=== PATIENT | female | born 1940 | race Two or more races ===

== ENCOUNTER → 2018-03-22 | Outpatient (CLI) | END | disposition home or self-care (01) ==

== ENCOUNTER 2018-07-13 07:05 | Inpatient (IN) | payer OTHER ==
[~2018-07-13] VITALS: Ht 157.5 cm; Wt 63.4 kg
[2018-07-13] VITALS (36 sets, daily range): BP systolic 89–159; BP diastolic 43–82; PULSE 71–95; RESP 13–22; Ht 157.5 cm; Wt 63.4 kg
[~2018-07-13 07:05] MED LIST: DESFLURANE 15 MIN ONE
[2018-07-13] MEDS ORDERED: TRANEXAMIC ACID 1,000 MG in NS 100 ML PRE-OP X1 IVPB ONE (08:30)
[2018-07-13] MEDS ORDERED: LACTATED RINGER'S 1,000 ML IV* SCH (08:30)
[2018-07-13] MEDS ORDERED: CEFAZOLIN 2 GM/50 ML (PMX) 50 ML IVPB ONE (08:30)
[2018-07-13] MEDS ORDERED: PROPOFOL 20 ML ONE (08:47)
[2018-07-13] MEDS ORDERED: GLYCOPYRROLATE 0.4 MG INJ ONE (08:47)
[2018-07-13] MEDS ORDERED: MIDAZOLAM 1 MG/ML 2 ML INJ ONE (08:47)
[2018-07-13] MEDS ORDERED: ROCURONIUM 50 MG INJ ONE (08:47)
[2018-07-13] MEDS ORDERED: NEOSTIGMINE 3 MG/3 ML SYRINGE ONE (08:47)
[2018-07-13] MEDS ORDERED: ONDANSETRON 4 MG INJ ONE (08:47)
[2018-07-13] MEDS ORDERED: CEFAZOLIN 1 GM INJ ONE (08:47)
[2018-07-13] MEDS ORDERED: FENTAnyl 50 MCG/ML VIAL ONE (08:47)
[2018-07-13] MEDS ORDERED: DEXAMETHASONE 4 MG/ML 5 ML INJ ONE (08:49)
[2018-07-13] MEDS ORDERED: ROPIVACAINE 0.5 % 30 ML VIAL ONE (08:49)
[2018-07-13] MEDS ORDERED: POLYMYXIN B 500000 UNIT INJ ONE (09:33)
[2018-07-13] MEDS ORDERED: BACITRACIN 50000 UNITS INJ ONE (09:34)
--- NOTE | 2018-07-13 09:43 | HPN ---
Date/Time of Note Date/Time of Note DATE: 07/13/18 TIME: 09:43 Interval H&P Admission Note Pt. seen H&P reviewed: No system changes CLAUDIA LEYVA MD Jul 13, 2018 09:43
[2018-07-13] MEDS: SOD CHLORIDE 0.9% 1,000 ML IV SCH ×2 (09:55→20:58)
--- NOTE | 2018-07-13 09:55 | PDOCDIS ---
Discharge Instructions DIAGNOSIS Discharge Diagnosis Status post right total knee arthroplasty CONDITION [id number] Patient Condition: [id number] Good HOME CARE INSTRUCTIONS: [id number] Diet Instructions: [id number] Regular ACTIVITY: [id number] Activity Restrictions: [id number] Slowly Increase Activity Rest between Activity Avoid heavy lifting No Sexual Activity Do not Drive Do not operate Machinery Do not operate Power Tool Avoid Heavy Housework Keep Limb Elevated (2-3 pillows underneath the right foot only so that leg remains in full extension while resting.) Weight Bearing (Weight-bear as tolerated using front-wheeled walker.) [id number] Bathing Restrictions: [id number] Shower (Okay to shower with Prineo dressing. Do not peel around this area. Keep dressing on until seen at first postoperative visit.) FOLLOW UP/APPOINTMENTS Follow-up Plan Follow-up at postoperative appointment provided to you at your preoperative exam JESSICA ARTEAGA PA-C Jul 13, 2018 09:55
[2018-07-13] MEDS ORDERED: ASPIRIN 81 MG TAB PO ONE (10:00)
[2018-07-13] MEDS ORDERED: oxyCODONE 5 MG TAB PO PRN ×3 (10:00)
[2018-07-13] MEDS ORDERED: DOCUSATE SODIUM 100 MG CAP PO ONE (10:00)
[2018-07-13] MEDS ORDERED: MAGNESIUM HYDROXIDE 30ML CUP PO PRN (10:00)
[2018-07-13] MEDS ORDERED: NA PHOSPHATE/BIPHOS 133 ML ENEMA PR PRN (10:00)
[2018-07-13] MEDS ORDERED: BETHANECHOL 25 MG TAB PO PRN (10:00)
[2018-07-13] MEDS ORDERED: NALOXONE (0.4 MG/ML) INJ IV PRN ×2 (10:00→10:30)
[2018-07-13] MEDS ORDERED: ROPIVACAINE 0.2% 60 ML, morphine SULFATE (PF) 4 MG, CLONIDINE 100 MCG, KETOROLAC 30 MG,... INJ SCH ×7 (10:00)
[2018-07-13] MEDS ORDERED: BISACODYL 10 MG SUPP PR PRN (10:00)
[2018-07-13] MEDS ORDERED: SENNA/DOCUSATE NA (8.6MG/50MG) TAB PO PRN (10:00)
[2018-07-13] MEDS ORDERED: NACL 0.9% 3 ML SYG IV SCH (10:00)
[2018-07-13] MEDS ORDERED: TRANEXAMIC ACID 1,000 MG in NS 100 ML INTRA-OP X1 IVPB ONE (10:00)
[2018-07-13] MEDS ORDERED: DIPHENHYDRAMINE 50 MG INJ IV PRN ×3 (10:00→10:30)
--- NOTE | 2018-07-13 10:14 | PREAC ---
Date/Time of Note Date/Time of Note DATE: 07/13/18 TIME: 10:12 Anesthesia Eval and Record Evaluation Time Pre-Procedure Interview DATE: 07/13/18 TIME: 10:12 Age 78 Sex female NPO: 8 hrs Preoperative diagnosis RIGHT KNEE PRIMARY OA Planned procedure RIGHT TKA Past Medical History Past Medical History: Includes Cardio: Dyslipidemia Surgery & Anesthesia Issues No known issue (SASHA) Meds Anticoagulation: No Beta Riley within 24 hr: No Reason Beta Riley not given: Pt. not on B-Riley No Active Prescriptions or Reported Meds Current Medications Lactated Ringer's 1,000 ml @ 125 mls/hr Q8H IV* ; Start 07/13/18 at 08:30; Stop 07/13/18 at 16:29 Tranexamic Acid 1000 mg/Sodium Chloride 110 ml @ 220 mls/hr INTRA-OP ONCE IVPB ; Start 07/13/18 at 10:00; Stop 07/13/18 at 10:29 Sodium Chloride 1,000 ml @ 80 mls/hr [id number] IV ; Start 07/13/18 at 09:55; Status UNV IV Flush (NS 3 ml) 3 ml PER PROTOCOL IV ; Start 07/13/18 at 10:00; Status UNV Oxycodone HCl (Roxicodone) 15 mg Q4H PRN PO PAIN; Start 07/13/18 at 10:00; Status UNV Oxycodone HCl (Roxicodone) 10 mg Q4H PRN PO PAIN; Start 07/13/18 at 10:00; Status UNV Oxycodone HCl (Roxicodone) 5 mg Q4H PRN PO PAIN; Start 07/13/18 at 10:00; Status UNV Ondansetron HCl (Zofran Inj) 4 mg Q4H PRN IV NAUSEA AND/OR VOMITING; Start 07/14/18 at 10:00; Status UNV Cefazolin Sodium/ Dextrose 50 ml @ 100 mls/hr Q8H IVPB ; Start 07/13/18 at 10:00; Stop 07/14/18 at 02:29; Status UNV Celecoxib (Celebrex) 100 mg BID PO ; Start 07/14/18 at 09:00; Status UNV Gabapentin (Neurontin) 100 mg TID PO ; Start 07/13/18 at 13:00; Status UNV Pantoprazole (Protonix Tab) 40 mg DAILY@06 PO ; Start 07/15/18 at 06:00; Status UNV Docusate Sodium (Colace) 200 mg NOW ONCE PO ; Start 07/13/18 at 10:00; Stop 07/13/18 at 10:01; Status UNV Docusate Sodium (Colace) 200 mg BID PO ; Start 07/14/18 at 09:00; Stop 07/17/18 at 08:59; Status UNV Simethicone (Mylicon) 80 mg TID PRN PO DISTENSION/GAS/BLOATING; Start 07/13/18 at 10:00; Status UNV Senna/Docusate Sodium (Senokot-S) 2 tab BID PRN PO CONSTIPATION; Start 07/13/18 at 10:00; Status UNV Magnesium Hydroxide (Milk Of Mag) 30 ml HS PRN PO CONSTIPATION; Start 07/13/18 at 10:00; Status UNV Bisacodyl (Dulcolax Supp) 10 mg DAILY PRN CO CONSTIPATION; Start 07/13/18 at 10:00; Status UNV Sodium Biphosphate/ Sodium Phosphate (Fleet Enema) 133 ml DAILY PRN CO CONSTIPATION; Start 07/13/18 at 10:00; Status UNV Diphenhydramine HCl (Benadryl) 25 mg Q4H PRN IV ITCHING; Start 07/13/18 at 10:00; Status UNV Naloxone HCl (Narcan) 0.2 mg Q2M PRN IV DECREASED REPIRATORY RATE; Start 07/13/18 at 10:00; Status UNV Bethanechol Chloride (Urecholine) 25 mg URINARY CATH D/C PRN PO UNABLE TO VOID; Start 07/13/18 at 10:00; Status UNV Aspirin (Aspirin) 81 mg NOW ONCE PO ; Start 07/13/18 at 10:00; Stop 07/13/18 at 10:01; Status UNV Aspirin (Halfprin) 81 mg BID PO ; Start 07/14/18 at 09:00; Status UNV Meds reviewed: Yes Allergies Coded Allergies: No Known Allergy (Unverified , 07/13/18) Allergies Reviewed: Yes Labs/Studies Labs Reviewed: Reviewed by anesthesiologist test: N/A Studies: ECG (SR @ 68 BPM), CXR (NAPD) Pre-procedure Exam Last vitals Vital Signs Date Temp Pulse Resp B/P (MAP) Pulse Ox O2 O2 Flow FiO2 Time Delivery Rate 07/13/18 97.3 71 18 159/72 96 Room Air 07:55 (101) Airway: Adequate mouth opening, Adequate thyromental dist Mallampati: Mallampati II Teeth: Abnormal (PT HAS 2 TEETH, CLAIMS THEY'RTE NOT LOOSE) Lung: Normal Heart: Normal ASA Physical Status ASA physical status: 2 Emergency: None Planned Anesthetic General/MAC: ETT Neuraxial: Spinal Nerve block: Femoral (right) Planned Pain Management Single shot nerve block, Parenteral pain med, Local by surgeon Pre-operative Attestations Prior to commencing anesthesia and surgery, the patient was re-evaluated, there was verification of: *The patient's identity *The results of appropriate recent lab work and preoperative vital signs *The above evaluation not changing prior to induction *Anesthetic plan, risk benefits, alternative and complications discussed with patient/family; questions answered; patient/family understands, accepts and wishes to proceed. Frank Bobo M.D. Jul 13, 2018 10:14
[2018-07-13] MEDS ORDERED: morphine SULFATE/PF (10 MG/10 ML) INJ ONE (10:28)
[2018-07-13] MEDS ORDERED: hydrALAzine 20 MG INJ IV PRN (10:30)
[2018-07-13] MEDS ORDERED: KETOROLAC 30 MG INJ IV PRN (10:30)
[2018-07-13] MEDS ORDERED: OXYCODONE/ACETAMINOPHEN (5/325) TAB PO PRN ×2 (10:30)
[2018-07-13] MEDS ORDERED: EPHEDrine SULFATE 50 MG/5 ML SYG IV PRN (10:30)
[2018-07-13] MEDS ORDERED: HYDROmorphONE 0.5 MG/0.5 ML SYG IV PRN ×2 (10:30)
[2018-07-13] MEDS ORDERED: MIDAZOLAM 1 MG/ML 2 ML INJ IV PRN (10:30)
[2018-07-13] MEDS ORDERED: ZOLPIDEM 5 MG TAB PO PRN (10:30)
[2018-07-13] MEDS ORDERED: MEPERIDINE 25 MG INJ IV PRN (10:30)
[2018-07-13] MEDS ORDERED: ALBUTEROL 0.083% (NEB) 2.5 MG/3 ML AMP HHN PRN (10:30)
[2018-07-13] MEDS ORDERED: ONDANSETRON 4 MG INJ IV PRN ×2 (10:30)
[2018-07-13] MEDS ORDERED: TRIMETHOBENZAMIDE 100 MG/ML VIAL IM PRN ×2 (10:30)
[2018-07-13] MEDS ORDERED: HYDROmorphONE 1 MG/5 ML IV SYRINGE IV PRN ×3 (10:30)
[2018-07-13] MEDS ORDERED: IPRATROPIUM (NEB) 0.5 MG/2.5 ML AMP HHN PRN (10:30)
[2018-07-13] MEDS ORDERED: FENTAnyl 50 MCG/ML VIAL IV PRN ×3 (10:30)
[2018-07-13] MEDS ORDERED: LABETALOL HCL 20MG INJ IV PRN (10:30)
[2018-07-13] MEDS ORDERED: NALBUPHINE HCL (10 MG/1 ML) INJ IV PRN (10:30)
[2018-07-13] MEDS ORDERED: SUGAMMADEX SODIUM 200 MG/2 ML VIAL IV ONE (12:30)
--- NOTE | 2018-07-13 12:44 | SIPON ---
Date/Time of Note Date/Time of Note DATE: 07/13/18 TIME: 12:43 Operative Report Preoperative Diagnosis Right Knee Osteoarthritis Postoperative Diagnosis Same Operation/Procedure Performed Right Total Knee Arthroplasty Surgeon Iman Leyva MD assistant professor of theater [address] Second assist: JESSICA ARTEAGA PA-C Anesthesia: spinal Estimated blood loss: 250 - 300 ml's Transfusion Required none Specimen bone Grafts/Implants none Complications none IMAN LEYVA MD Jul 13, 2018 12:43
--- NOTE | 2018-07-13 12:45 | OPR ---
Date/Time of Note Date/Time of Note DATE: 07/13/18 TIME: 12:44 Operative Report Free Text/Dictation DATE OF OPERATION: July 13, 2018 SURGEON: Claudia Leyva MD LUMBER SORTER MACHINE: Dwayne TIERNEY LUMBER SORTER MACHINE: Ziyad Moctezuma PREOPERATIVE DIAGNOSIS: Right knee osteoarthritis. POSTOPERATIVE DIAGNOSIS: Right knee osteoarthritis. PROCEDURES PERFORMED: Right total knee arthroplasty, CPT code 08343. ANESTHESIOLOGIST: Dr. Bobo ANESTHESIA: Spinal. ESTIMATED BLOOD LOSS: 300 mL. COMPLICATIONS: None. SPECIMENS: Resected bone. DISPOSITION: PACU in stable condition. TOURNIQUET TIME: 47 minutes at 250 mmHg. IMPLANT USED: Marquez [employer] Nephew size 3 Aggie tibial baseplate, size 5 Narrow posterior stabilized Oxinium femur, size 10 high flexion polyethylene, size 35 mm patella. INDICATION FOR PROCEDURE: This is an 78-year-old female with end-stage osteoarthritis of the right knee who had failed nonoperative management. Risks, benefits, alternatives of surgical intervention were discussed with the patient and informed consent was obtained. The risks of surgery include but are not limited to infection, deep venous thrombosis, pulmonary embolism, damage to nerves and blood vessels, numbness around incision site, stiffness of knee, need for total knee manipulation under anesthesia, need for blood transfuion, heart attack, stroke, risks associated with anesthesia, implant loosening, wear of prosthesis, need for revision surgery, and . DESCRIPTION OF PROCEDURE: The patient was met in the preoperative suite. The correct operative site was confirmed and marked. The patient was then brought into operating room. After induction of anesthesia, the patient was placed in the supine position on the operating room table. A tourniquet was applied to right upper thigh. The right lower extremity was prepped and draped in the usual sterile fashion. Before starting, a timeout was taken to identify the correct operative site and confirm preoperative antibiotics consisting of 1 g of IV Ancef, along with 1 g of tranexamic acid were administered. At this point, the right leg was elevated and exsanguinated with an Esmarch and tourniquet was then insufflated for the above noted time. A midline incision was made and median parapatellar arthrotomy was then completed. The lateral patellar retinacular ligaments were released. A sleeve of tissue was released from the medial proximal tibia. The cruciate ligaments and the menisci were then excised. At this point, the custom distal femur cutting block was then pinned and 9.5 mm was resected from the distal femur. The 4-in-1 cutting block, size 5 was then placed. An clifton wing was used to confirm that notching of the anterior cortex of the femur would not occur. The anterior and posterior condylar cuts were completed followed by the anterior and posterior chamfer cuts. The osteophytes were then removed with a rongeur. At this point, the tibia was subluxed anteriorly. Appropriate retractors were placed. The custom tibial cutting block was then pinned. The drop was used to ensure the correct alignment. Approximately 11 mm was resected off the lateral tibial plateau and 5 mm off the medial tibial plateau. Osteophytes were then removed. At this point, the flexion extension gaps were checked with a 9 mm gap tool checker and noted to be loose in both. Next, trial 5 narrow femur was then pinned and the box cut was then completed. The tibia was then subluxed anteriorly and measured to size 3. The tibial tray was then pinned and a keel was then punched. The trial components were placed with a 9 mm polyethylene and noted to have full extension and greater than 120 degrees of flexion. The patella was then subluxed laterally and sized to 21 mm. Approximately, 7 mm was resected. The patellar was sized to 35 mm. The button was placed and noted to have excellent patellar tracking. The trial components were removed. All bony surfaces were pulse lavaged and dried. The appropriate size components were then cemented and the knee was held in extension with a 10 mm trial polyethylene until the cement cured. Once the cement had cured, the trial polyethylene was removed and the appropriate size polyethylene was then placed. The tranexamic acid was redosed. The cocktail was then injected. The extensor mechanism was closed using #1 Stratafix and the subcutaneous tissue with 2-0 Vicryl and the skin with 4-0 Monocryl. Steri-Strips were applied along with a sterile dressing. There were no complications. The patient was transferred to PACU in stable condition. POSTOPERATIVE CARE: The patient will be weightbearing as tolerated. The patient will work with physical therapy, and will receive two additional doses of IV antibiotics along with aspirin 81 mg p.o. b.i.d. for 6 weeks. Upon discharge, patient will follow up in my office within 2 weeks postoperatively. CLAUDIA LEYVA MD Jul 13, 2018 12:45
--- NOTE | 2018-07-13 12:54 | PAC ---
Date/Time of Note Date/Time of Note DATE: 07/13/18 TIME: 12:54 Post-Anesthesia Notes Post-Anesthesia Note Last documented vital signs Vital Signs Date Temp Pulse Resp B/P (MAP) Pulse Ox O2 O2 Flow FiO2 Time Delivery Rate 07/13/18 97.3 71 18 159/72 96 Room Air 12:54 (101) Activity: WNL Respiratory function: WNL Cardiovascular function: WNL Mental status: Baseline Pain reasonably controlled: Yes Hydration appropriate: Yes Nausea/Vomiting absent: Yes Frank Bobo M.D. Jul 13, 2018 12:54
--- NOTE | 2018-07-13 14:07 | CONS ---
Date/Time of Note Date/Time of Note DATE: 07/13/18 TIME: 13:59 Consultation Date/Type/Reason Admit Date/Time Jul 13, 2018 at 07:05 Type of Consult Medicine Hx of Present Illness 78 yo female with OA who is seen in PACU following TKA - No acute medical issues - Pain control - Diet as tolerated - DVT prophylaxis per orthopedics Past Medical History Medications Current Medications Lactated Ringer's 1,000 ml @ 125 mls/hr Q8H IV* ; Start 07/13/18 at 08:30; Stop 07/13/18 at 16:29 Sodium Chloride 1,000 ml @ 80 mls/hr [id number] IV ; Start 07/13/18 at 09:55 IV Flush (NS 3 ml) 3 ml PER PROTOCOL IV ; Start 07/13/18 at 10:00 Oxycodone HCl (Roxicodone) 15 mg Q4H PRN PO PAIN; Start 07/13/18 at 10:00 Oxycodone HCl (Roxicodone) 10 mg Q4H PRN PO PAIN; Start 07/13/18 at 10:00 Oxycodone HCl (Roxicodone) 5 mg Q4H PRN PO PAIN; Start 07/13/18 at 10:00 Ondansetron HCl (Zofran Inj) 4 mg Q4H PRN IV NAUSEA AND/OR VOMITING; Start 07/14/18 at 10:00 Cefazolin Sodium/ Dextrose 50 ml @ 100 mls/hr Q8H IVPB ; Start 07/13/18 at 19:00; Stop 07/14/18 at 11:29 Celecoxib (Celebrex) 100 mg BID PO ; Start 07/14/18 at 09:00 Gabapentin (Neurontin) 100 mg TID PO ; Start 07/13/18 at 15:00 Pantoprazole (Protonix Tab) 40 mg DAILY@06 PO ; Start 07/15/18 at 06:00 Docusate Sodium (Colace) 200 mg BID PO ; Start 07/14/18 at 09:00; Stop 07/17/18 at 08:59 Simethicone (Mylicon) 80 mg TID PRN PO DISTENSION/GAS/BLOATING; Start 07/13/18 at 10:00 Senna/Docusate Sodium (Senokot-S) 2 tab BID PRN PO CONSTIPATION; Start 07/13/18 at 10:00 Magnesium Hydroxide (Milk Of Mag) 30 ml HS PRN PO CONSTIPATION; Start 07/13/18 at 10:00 Bisacodyl (Dulcolax Supp) 10 mg DAILY PRN CA CONSTIPATION; Start 07/13/18 at 10:00 Sodium Biphosphate/ Sodium Phosphate (Fleet Enema) 133 ml DAILY PRN CA CONSTIPATION; Start 07/13/18 at 10:00 Diphenhydramine HCl (Benadryl) 25 mg Q4H PRN IV ITCHING; Start 07/13/18 at 10:00 Naloxone HCl (Narcan) 0.2 mg Q2M PRN IV DECREASED REPIRATORY RATE; Start 07/13/18 at 10:00 Bethanechol Chloride (Urecholine) 25 mg URINARY CATH D/C PRN PO UNABLE TO VOID; Start 07/13/18 at 10:00 Aspirin (Halfprin) 81 mg BID PO ; Start 07/14/18 at 09:00 Hydromorphone HCl (Dilaudid) 0.2 mg PACU PRN IV MILD PAIN LEVEL 1-3; Start 07/13/18 at 10:30; Stop 07/13/18 at 16:00 Hydromorphone HCl (Dilaudid) 0.4 mg PACU PRN IV MODERATE PAIN LEVEL 4-6; Start 07/13/18 at 10:30; Stop 07/13/18 at 16:00 Hydromorphone HCl (Dilaudid) 0.6 mg PACU PRN IV SEVERE PAIN LEVEL 7-10; Start 07/13/18 at 10:30; Stop 07/13/18 at 16:00 Fentanyl (Sublimaze) 25 mcg PACU ORDER PRN IV MILD PAIN LEVEL 1-3; Start 07/13/18 at 10:30; Stop 07/13/18 at 16:00 Fentanyl (Sublimaze) 50 mcg PACU ORDER PRN IV MODERATE PAIN LEVEL 4-6; Start 07/13/18 at 10:30; Stop 07/13/18 at 16:00 Fentanyl (Sublimaze) 75 mcg PACU ORDER PRN IV SEVERE PAIN LEVEL 7-10; Start 07/13/18 at 10:30; Stop 07/13/18 at 16:00 Oxycodone/ Acetaminophen (Percocet (5/ 325)) 1 tab PACU ORDER PRN PO PAIN LEVEL 1-5; Start 07/13/18 at 10:30; Stop 07/13/18 at 16:00 Oxycodone/ Acetaminophen (Percocet (5/ 325)) 2 tab PACU ORDER PRN PO PAIN LEVEL 6-10; Start 07/13/18 at 10:30; Stop 07/13/18 at 16:00 Ondansetron HCl (Zofran Inj) 4 mg PACU ORDER PRN IV NAUSEA AND/OR VOMITING; Start 07/13/18 at 10:30; Stop 07/13/18 at 16:00 Trimethobenzamide HCl (Tigan) 200 mg PACU ORDER PRN IM NAUSEA AND/OR VOMITING; Start 07/13/18 at 10:30; Stop 07/13/18 at 16:00 Labetalol HCl (Labetalol) 5 mg PACU ORDER PRN IV ELEVATED BLOOD PRESSURE; Start 07/13/18 at 10:30; Stop 07/13/18 at 16:00 Hydralazine HCl (Apresoline) 5 mg PACU ORDER PRN IV ELEVATED BLOOD PRESSURE; Start 07/13/18 at 10:30; Stop 07/13/18 at 16:00 Ephedrine Sulfate 5 mg PACU ORDER PRN IV BLOOD PRESSURE SUPPORT; Start 07/13/18 at 10:30; Stop 07/13/18 at 16:00 Albuterol (Proventil 0.083% (Neb)) 2.5 mg PACU ORDER PRN HHN WHEEZING; Start 07/13/18 at 10:30; Stop 07/13/18 at 16:00 Ipratropium [place] (Atrovent 0.02% (Neb)) 0.5 mg PACU ORDER PRN HHN WHEEZING; Start 07/13/18 at 10:30; Stop 07/13/18 at 16:00 Meperidine HCl (Demerol) 25 mg PACU ORDER PRN IV POST OPERATIVE SHIVERING; Start 07/13/18 at 10:30; Stop 07/13/18 at 16:00 Diphenhydramine HCl (Benadryl) 25 mg PACU ORDER PRN IV PRURITUS; Start 07/13/18 at 10:30; Stop 07/13/18 at 16:00 Midazolam HCl (Versed) 0.5 mg PACU ORDER PRN IV ANXIETY; Start 07/13/18 at 10:30; Stop 07/13/18 at 16:00 Hydromorphone HCl (Dilaudid) 0.2 mg Q2H PRN IV PAIN LEVEL 1-5; Start 07/13/18 at 10:30 Hydromorphone HCl (Dilaudid) 0.4 mg Q2H PRN IV PAIN LEVEL 6-10; Start 07/13/18 at 10:30 Ketorolac Tromethamine (Toradol) 30 mg Q6H PRN IV PAIN LEVEL 6-10; Start 07/13/18 at 10:30; Stop 07/16/18 at 10:29 Diphenhydramine HCl (Benadryl) 25 mg Q4H PRN IV PRURITUS; Start 07/13/18 at 10:30 Nalbuphine HCl (Nubain) 10 mg Q4H PRN IV PRURITUS; Start 07/13/18 at 10:30 Ondansetron HCl (Zofran Inj) 4 mg Q6H PRN IV NAUSEA AND/OR VOMITING; Start 07/13/18 at 10:30 Trimethobenzamide HCl (Tigan) 200 mg Q6H PRN IM NAUSEA AND/OR VOMITING; Start 07/13/18 at 10:30 Zolpidem Tartrate (Ambien) 5 mg HS MAY REPEAT X 1 PRN PO INSOMNIA; Start 07/13/18 at 10:30 Naloxone HCl (Narcan) 0.2 mg Q2M PRN IV DECREASED REPIRATORY RATE; Start 07/13/18 at 10:30 Miscellaneous Information (* Miscellaneous Pharmacy Order) DURAMORPH: 0.1 MG SPI... GIVEN NEURAXIAL XX ; Start 07/13/18 at 10:30 Allergies: Coded Allergies: No Known Allergy (Unverified , 07/13/18) Social History Smoking Status: Never smoker Exam/Review of Systems Vital Signs Vitals Vital Signs Date Temp Pulse Resp B/P (MAP) Pulse Ox O2 O2 Flow FiO2 Time Delivery Rate 07/13/18 86 22 113/64 98 Nasal 2.0 13:35 (80) Cannula 07/13/18 98.1 12:43 Medications Medications Current Medications Lactated Ringer's 1,000 ml @ 125 mls/hr Q8H IV* ; Start 07/13/18 at 08:30; Stop 07/13/18 at 16:29 Sodium Chloride 1,000 ml @ 80 mls/hr [id number] IV ; Start 07/13/18 at 09:55 IV Flush (NS 3 ml) 3 ml PER PROTOCOL IV ; Start 07/13/18 at 10:00 Oxycodone HCl (Roxicodone) 15 mg Q4H PRN PO PAIN; Start 07/13/18 at 10:00 Oxycodone HCl (Roxicodone) 10 mg Q4H PRN PO PAIN; Start 07/13/18 at 10:00 Oxycodone HCl (Roxicodone) 5 mg Q4H PRN PO PAIN; Start 07/13/18 at 10:00 Ondansetron HCl (Zofran Inj) 4 mg Q4H PRN IV NAUSEA AND/OR VOMITING; Start 07/14/18 at 10:00 Cefazolin Sodium/ Dextrose 50 ml @ 100 mls/hr Q8H IVPB ; Start 07/13/18 at 19:00; Stop 07/14/18 at 11:29 Celecoxib (Celebrex) 100 mg BID PO ; Start 07/14/18 at 09:00 Gabapentin (Neurontin) 100 mg TID PO ; Start 07/13/18 at 15:00 Pantoprazole (Protonix Tab) 40 mg DAILY@06 PO ; Start 07/15/18 at 06:00 Docusate Sodium (Colace) 200 mg BID PO ; Start 07/14/18 at 09:00; Stop 07/17/18 at 08:59 Simethicone (Mylicon) 80 mg TID PRN PO DISTENSION/GAS/BLOATING; Start 07/13/18 at 10:00 Senna/Docusate Sodium (Senokot-S) 2 tab BID PRN PO CONSTIPATION; Start 07/13/18 at 10:00 Magnesium Hydroxide (Milk Of Mag) 30 ml HS PRN PO CONSTIPATION; Start 07/13/18 at 10:00 Bisacodyl (Dulcolax Supp) 10 mg DAILY PRN CA CONSTIPATION; Start 07/13/18 at 10:00 Sodium Biphosphate/ Sodium Phosphate (Fleet Enema) 133 ml DAILY PRN CA CONSTIPATION; Start 07/13/18 at 10:00 Diphenhydramine HCl (Benadryl) 25 mg Q4H PRN IV ITCHING; Start 07/13/18 at 10:00 Naloxone HCl (Narcan) 0.2 mg Q2M PRN IV DECREASED REPIRATORY RATE; Start 07/13/18 at 10:00 Bethanechol Chloride (Urecholine) 25 mg URINARY CATH D/C PRN PO UNABLE TO VOID; Start 07/13/18 at 10:00 Aspirin (Halfprin) 81 mg BID PO ; Start 07/14/18 at 09:00 Hydromorphone HCl (Dilaudid) 0.2 mg PACU PRN IV MILD PAIN LEVEL 1-3; Start 07/13/18 at 10:30; Stop 07/13/18 at 16:00 Hydromorphone HCl (Dilaudid) 0.4 mg PACU PRN IV MODERATE PAIN LEVEL 4-6; Start 07/13/18 at 10:30; Stop 07/13/18 at 16:00 Hydromorphone HCl (Dilaudid) 0.6 mg PACU PRN IV SEVERE PAIN LEVEL 7-10; Start 07/13/18 at 10:30; Stop 07/13/18 at 16:00 Fentanyl (Sublimaze) 25 mcg PACU ORDER PRN IV MILD PAIN LEVEL 1-3; Start 07/13/18 at 10:30; Stop 07/13/18 at 16:00 Fentanyl (Sublimaze) 50 mcg PACU ORDER PRN IV MODERATE PAIN LEVEL 4-6; Start 07/13/18 at 10:30; Stop 07/13/18 at 16:00 Fentanyl (Sublimaze) 75 mcg PACU ORDER PRN IV SEVERE PAIN LEVEL 7-10; Start 07/13/18 at 10:30; Stop 07/13/18 at 16:00 Oxycodone/ Acetaminophen (Percocet (5/ 325)) 1 tab PACU ORDER PRN PO PAIN LEVEL 1-5; Start 07/13/18 at 10:30; Stop 07/13/18 at 16:00 Oxycodone/ Acetaminophen (Percocet (5/ 325)) 2 tab PACU ORDER PRN PO PAIN LEVEL 6-10; Start 07/13/18 at 10:30; Stop 07/13/18 at 16:00 Ondansetron HCl (Zofran Inj) 4 mg PACU ORDER PRN IV NAUSEA AND/OR VOMITING; Start 07/13/18 at 10:30; Stop 07/13/18 at 16:00 Trimethobenzamide HCl (Tigan) 200 mg PACU ORDER PRN IM NAUSEA AND/OR VOMITING; Start 07/13/18 at 10:30; Stop 07/13/18 at 16:00 Labetalol HCl (Labetalol) 5 mg PACU ORDER PRN IV ELEVATED BLOOD PRESSURE; Start 07/13/18 at 10:30; Stop 07/13/18 at 16:00 Hydralazine HCl (Apresoline) 5 mg PACU ORDER PRN IV ELEVATED BLOOD PRESSURE; Start 07/13/18 at 10:30; Stop 07/13/18 at 16:00 Ephedrine Sulfate 5 mg PACU ORDER PRN IV BLOOD PRESSURE SUPPORT; Start 07/13/18 at 10:30; Stop 07/13/18 at 16:00 Albuterol (Proventil 0.083% (Neb)) 2.5 mg PACU ORDER PRN HHN WHEEZING; Start 07/13/18 at 10:30; Stop 07/13/18 at 16:00 Ipratropium [place] (Atrovent 0.02% (Neb)) 0.5 mg PACU ORDER PRN HHN WHEEZING; Start 07/13/18 at 10:30; Stop 07/13/18 at 16:00 Meperidine HCl (Demerol) 25 mg PACU ORDER PRN IV POST OPERATIVE SHIVERING; Start 07/13/18 at 10:30; Stop 07/13/18 at 16:00 Diphenhydramine HCl (Benadryl) 25 mg PACU ORDER PRN IV PRURITUS; Start 07/13/18 at 10:30; Stop 07/13/18 at 16:00 Midazolam HCl (Versed) 0.5 mg PACU ORDER PRN IV ANXIETY; Start 07/13/18 at 10:30; Stop 07/13/18 at 16:00 Hydromorphone HCl (Dilaudid) 0.2 mg Q2H PRN IV PAIN LEVEL 1-5; Start 07/13/18 at 10:30 Hydromorphone HCl (Dilaudid) 0.4 mg Q2H PRN IV PAIN LEVEL 6-10; Start 07/13/18 at 10:30 Ketorolac Tromethamine (Toradol) 30 mg Q6H PRN IV PAIN LEVEL 6-10; Start 07/13/18 at 10:30; Stop 07/16/18 at 10:29 Diphenhydramine HCl (Benadryl) 25 mg Q4H PRN IV PRURITUS; Start 07/13/18 at 10:30 Nalbuphine HCl (Nubain) 10 mg Q4H PRN IV PRURITUS; Start 07/13/18 at 10:30 Ondansetron HCl (Zofran Inj) 4 mg Q6H PRN IV NAUSEA AND/OR VOMITING; Start 07/13/18 at 10:30 Trimethobenzamide HCl (Tigan) 200 mg Q6H PRN IM NAUSEA AND/OR VOMITING; Start 07/13/18 at 10:30 Zolpidem Tartrate (Ambien) 5 mg HS MAY REPEAT X 1 PRN PO INSOMNIA; Start 07/13/18 at 10:30 Naloxone HCl (Narcan) 0.2 mg Q2M PRN IV DECREASED REPIRATORY RATE; Start 07/13/18 at 10:30 Miscellaneous Information (* Miscellaneous Pharmacy Order) DURAMORPH: 0.1 MG SPI... GIVEN NEURAXIAL XX ; Start 07/13/18 at 10:30 MARC SEE MD Jul 13, 2018 14:07
[2018-07-13] MEDS: GABAPENTIN 100 MG CAP PO SCH ×2 (15:38→20:58)
[2018-07-13] MEDS: CEFAZOLIN 2 GM/50 ML (PMX) 50 ML IVPB SCH (19:32)
[2018-07-14 02:00] VITALS: BP 100/56; RESP 18
[2018-07-14] MEDS: CEFAZOLIN 2 GM/50 ML (PMX) 50 ML IVPB SCH ×2 (02:43→11:25)
[2018-07-14 05:30] VITALS: BP 97/53; PULSE 71; RESP 17
[2018-07-14 07:42] VITALS: BP 92/51; PULSE 65; RESP 18
[2018-07-14] MEDS: GABAPENTIN 100 MG CAP PO SCH ×2 (08:16→13:43)
[2018-07-14] MEDS ORDERED: DOCUSATE SODIUM 100 MG CAP PO SCH (09:00)
[2018-07-14] MEDS ORDERED: ASPIRIN (EC) 81 MG TAB PO SCH (09:00)
[2018-07-14] MEDS ORDERED: CELECOXIB 100 MG CAP PO SCH (09:00)
[2018-07-14] MEDS ORDERED: ONDANSETRON 4 MG INJ IV PRN (10:00)
[2018-07-14] MEDS: SOD CHLORIDE 0.9% 1,000 ML IV SCH (10:55)
--- NOTE | 2018-07-14 13:06 | PN ---
Date/Time of Note Date/Time of Note DATE: 07/14/18 TIME: 13:04 Assessment/Plan VTE Prophylaxis VTE Prophylaxis Intervention: ambulation, SCD's, other (Aspirin 81) Lines/Catheters IV Catheter Type (from Nrsg): Peripheral IV Fall in Place (from Nrsg): No Assessment/Plan Assessment/Plan -Pain Meds as needed -ASA for DVT Prophylaxis x 6 weeks outpatient discussed. -Continue monitoring as outpatient on discharge -Follow-up at scheduled postop outpatient appointment or sooner if there is any issue. -Patient Stable -Discharge to SNF per patient request as she is uncomfortable returning home. Subjective 24 Hr Interval Summary 78-year-old female postop day 1 status post right total knee arthroplasty. Mild to moderate pain complaints today. Walking about 3 feet with physical therapy yesterday. Denies any chest pain/tightness, shortness of breath or difficulty breathing. No fever. Pain Control: mild Exam/Review of Systems Vital Signs Vitals Vital Signs Date Temp Pulse Resp B/P (MAP) Pulse Ox O2 O2 Flow FiO2 Time Delivery Rate 07/14/18 Nasal 3.0 08:32 Cannula 07/14/18 98.0 65 18 92/51 (65) 96 07:42 Intake and Output 07/13/18 07/13/18 07/14/18 1515:00 23:00 07:00 IntakeIntake Total 1600 ml 100 ml 610 ml OutputOutput Total 50 ml 600 ml 400 ml BalanceBalance 1550 ml -500 ml 210 ml Exam Free Text/Dictation -No complications with dressing intact. -4/5 Tibialis Anterior, EHL Gastrocnemius/Soleus and Peroneals -Normal Sensation -Palpable DP/PT, Capillary Refill <2 secs -No Distal Edema -Negative Sol Sign/No calf pain -Toes Freely Movable Constitutional: alert, oriented, well developed Results Result Diagram: 07/14/18 0435 07/14/18 0435 JESSICA ARTEAGA PA-C Jul 14, 2018 13:06
[2018-07-14 14:47] VITALS: BP 93/54; PULSE 78; RESP 18
--- NOTE | 2018-07-14 15:54 | DS ---
Date/Time of Note Date/Time of Note DATE: 07/14/18 TIME: 15:51 Discharge Summary Admission/Discharge Info Admit Date/Time Jul 13, 2018 at 07:05 Discharge Date/Time Discharge Diagnosis Status post right total knee arthroplasty Patient Condition: Stable Consults Dr Minna Lakhani Procedures PREOPERATIVE DIAGNOSIS: Right knee osteoarthritis. POSTOPERATIVE DIAGNOSIS: Right knee osteoarthritis. PROCEDURES PERFORMED: Right total knee arthroplasty, CPT code 53968. Postop x-ray shows intact alignment Hx of Present Illness 78-year-old female admitted for elective knee surgery. Hospital Course 78-year-old female admitted for elective knee surgery. Chronic osteoarthritis. Underwent right total knee arthroplasty. Presently stable and fit for discharge. I believe weightbearing as tolerated, to see Ortho in follow-up. Recommended aspirin twice daily for 6 weeks. Due to deconditioning going to sniff. Will add Lovenox for a week's therapy for DVT prophylaxis since she is not going directly home. right total knee arthroplasty Osteoarthritis Anemia Deconditioning failure to thrive Home Meds No Active Prescriptions or Reported Meds Follow-up Plan Follow-up at postoperative appointment provided to you at your preoperative exam Primary Care Provider Not On Staff Doctor Time spent on discharge: > 30 minutes Pending Labs Laboratory Tests Test 07/14/18 04:35 White Blood Count 7.8 10^3/ul (4.8-10.8) Red Blood Count 3.20 10^6/ul (4.20-5.40) Hemoglobin 9.5 g/dl (12.0-16.0) Hematocrit 29.6 % (37.0-47.0) Mean Corpuscular Volume 92.5 fl (82.0-101.0) Mean Corpuscular Hemoglobin 29.7 pg (29.0-33.0) Mean Corpuscular Hemoglobin Concent 32.1 g/dl (32.0-37.0) Red Cell Distribution Width 13.6 % (11.5-14.5) Platelet Count 252 10^3/UL (140-415) Mean Platelet Volume 9.1 fl (7.4-10.4) Immature Granulocytes % 0.300 % (0.001-0.429) Neutrophils % 82.8 % (39.0-77.0) Lymphocytes % 10.0 % (15.0-51.0) Monocytes % 6.8 % (0.0-11.0) Eosinophils % 0.0 % (0.0-7.0) Basophils % 0.1 % (0.0-2.0) Nucleated Red Blood Cells % 0.0 /100WBC (0.0-0.0) Immature Granulocytes # 0.020 10^3/ul (0.0-0.031) Neutrophils # 6.5 10^3/ul (1.6-7.5) Lymphocytes # 0.8 10^3/ul (0.8-2.9) Monocytes # 0.5 10^3/ul (0.3-0.9) Eosinophils # 0.0 10^3/ul (0.0-0.5) Basophils # 0.0 10^3/ul (0.0-0.1) Nucleated Red Blood Cells # 0.0 10^3/ul (0.0-0.0) Sodium Level 136 mmol/L (135-144) Potassium Level 4.3 mmol/L (3.5-5.1) Chloride Level 103 mmol/L (97-110) Carbon Dioxide Level 24 mmol/L (21-31) Anion Gap 9 (5-13) Blood Urea Nitrogen 22 mg/dl (7-20) Creatinine 0.60 mg/dl (0.44-1.00) Est Glomerular Filtrat Rate mL/min mL/min (>60) Glucose Level 140 mg/dl (70-220) Calcium Level 8.8 mg/dl (8.4-10.2) RONNY CEDILLO MD Jul 14, 2018 15:54
[2018-07-15] MEDS ORDERED: PANTOPRAZOLE (EC) 40 MG TAB PO SCH (06:00)
[2018-07-15] MEDS ORDERED: ENOXAPARIN 40 MG/0.4 ML SYG SC SCH (09:00)
--- NOTE | 2018-07-15 09:47 | DS ---
Date/Time of Note Date/Time of Note DATE: 07/15/18 TIME: 09:45 Discharge Summary Admission/Discharge Info Admit Date/Time Jul 13, 2018 at 07:05 Discharge Date/Time Jul 14, 2018 at 19:40 Discharge Diagnosis Status post right total knee arthroplasty Patient Condition: Good Hospital Course On the day of admission, the patient underwent right total knee arthroplasty Intraoperative complications: None Postoperative complications: None The patient was given prophylactic antibiotics and anticoagulants. On the day of surgery and first postoperative day patient was started on gait training and was taught usual restrictions following knee replacement On postoperative day 1 dressing was clean dry and intact. No complications were observed. On the day of discharge, the wound was clean and healing well; there was no sign of infection. Wound care instructions were discussed with the patient. Discharge Temperature: 98.7 degrees Discharge White Blood Cell Count: 7.8 Discharge Hemoglobin: 9.5 The patient was discharged long term facility. Arrangements were made for visiting nurses and home health/physical therapy. The patient will be seen in office at scheduled postoperative evaluation date given on their preoperative exam. Should patient complain of any problems prior to scheduled postoperative evaluation date, they may call into outpatient clinic to determine if they need to be scheduled at sooner appointment to be seen immediately if needed. Discharge medications: As per medication reconciliation form Diet: Same as preadmission diet. This is Jessica Villa PA-C dictating discharge summary for Dr. Addie Lakhani. Home Meds No Active Prescriptions or Reported Meds Follow-up Plan Follow-up at postoperative appointment provided to you at your preoperative exam Primary Care Provider Not On Staff Doctor JESSICA ARTEAGA PA-C Jul 15, 2018 09:47
== END 2018-07-14 19:40 | DRG 470 ==
LOC: REC 07:05 → MS1 16:55
PROVIDERS: ADMIT Orthopaedic Surgery Adult Reconstructive Orthopaedic Surgery; ATTEND Orthopaedic Surgery Adult Reconstructive Orthopaedic Surgery
PROC: 0SRC069 Replacement of Right Knee Joint with Oxidized Zirconium on Polyethylene Synthetic Substitute, Cemented, Open Approach (ICD-10-PCS; principal; 2018-07-13 10:00)
DX: M17.11 Unilateral primary osteoarthritis, right knee (principal); J98.11 Atelectasis; D64.9 Anemia, unspecified; R62.7 Adult failure to thrive
CPT/HCPCS: 71045; 73560; 80048; 85025; 88304; 88311; 97116; 97161; 97167; 97530; C1713; C1776; J0690; J1100; J1885; J2250; J2274; J2405; J2710; J2795; J3010; J7030

== ENCOUNTER → 2018-08-23 | Outpatient (CLI) | payer OTHER ==
--- NOTE | 2018-08-23 14:41 | HKNOTE ---
DATE OF SERVICE: 08/23/2018 HISTORY OF PRESENT ILLNESS: Ms. Chang is 6 weeks status post right total knee arthroplasty. She h as been doing well. She has no complaints. She is satisfied with her surgery. DATE OF SURGERY: Right total knee arthroplasty, 07/13 2018. RIGHT KNEE EXAMINATION: Healed incision, 0 to 120 degrees range of motion, stable to varus valgus st ress, 5/5 functional quadriceps with anterior, gastric soleus. IMAGING: X-rays right knee. The implant is in acceptable alignment. No fractures, dislocations or loosening. IMPRESSION: A 78-year-old female status post right total knee arthroplasty 6 weeks ago. PLAN: She will finish her postoperative aspirin. She can be weightbearing as tolerated. She does n ot require additional physical therapy. She will follow up in 6 months. Dictated By: CLAUDIA DUNBAR/VERONICA Conf#: [id number] DID#: [id number]
--- NOTE | 2018-08-25 07:14 | RADRPT ---
PROCEDURE: Right knee series CLINICAL INDICATION: Pain TECHNIQUE: AP and lateral weightbearing and sunrise views of the right knee were obtained COMPARISON: Knee study 07/29/2018 FINDINGS: There is a total right knee prosthesis in place without dislocation or loosening. No acute fractures. No focal bony blastic or lytic lesions. Small right suprapatellar knee joint effusion. Soft tissues are otherwise unremarkable. IMPRESSION: 1. Unremarkable right knee prosthesis without dislocation loosening or acute fracture. 2. Small right suprapatellar knee joint effusion. RPTAT:AAJJ Physician Samuel Date Time Electronically viewed and signed by Physician Samuel on 08/25/2018 07:13 /
== END | disposition home or self-care (01) ==
LOC: HKI 12:56
PROVIDERS: ATTEND Orthopaedic Surgery Adult Reconstructive Orthopaedic Surgery
DX: Z09 Encounter for follow-up examination after completed treatment for conditions other than malignant neoplasm (principal); Z96.651 Presence of right artificial knee joint

== ENCOUNTER → 2018-08-30 | Outpatient (CLI) | payer OTHER ==
--- NOTE | 2018-08-30 16:37 | HKNOTE ---
DATE OF SERVICE: 08/30/2018 HISTORY OF PRESENT ILLNESS: Ms. Chang returns today for reevaluation. She is approximately 6 weeks status post right total knee arthroplasty. She is complaining of warmth of her knee and fevers at h ome. She is unsure of the temperature. PHYSICAL EXAMINATION: Right knee: Healed incision. No active drainage, no erythema. There is normal postoperative warmth . A 0 to 120 degrees' passive range of motion, stable to varus valgus stress. IMPRESSION: A 78-year-old female 6 weeks status post right total knee arthroplasty. PLAN: She was instructed to take Bactrim double strength b.i.d. for 1 week. She can continue to ice the right knee. She will follow up in 2 weeks for reevaluation. Dictated By: CLAUDIA DUNBAR/VERONICA Conf#: [id number] DID#: [id number]
== END | disposition home or self-care (01) ==
LOC: HKI 14:09
PROVIDERS: ATTEND Orthopaedic Surgery Adult Reconstructive Orthopaedic Surgery
DX: Z47.1 Aftercare following joint replacement surgery (principal); Z96.651 Presence of right artificial knee joint

== ENCOUNTER → 2018-09-13 | Outpatient (CLI) | payer OTHER ==
--- NOTE | 2018-09-13 16:16 | HKNOTE ---
DATE OF SERVICE: 09/13/2018 CHIEF COMPLAINT: Followup. HISTORY OF PRESENT ILLNESS: Ms. Chang is status post right total knee arthroplasty on 07/13/2018. She has recently finished 7 days of double strength Bactrim. She denies any fevers or chills. PHYSICAL EXAMINATION: RIGHT KNEE: Incision is healed. No drainage or erythema. A 0 to 120 degrees range of motion, stabl e to varus valgus stress. IMPRESSION: A 78-year-old female 2 months status post right total knee arthroplasty. PLAN: She can be weightbearing as tolerated. She does not require pain medications. She will follo w up in 3 months. Dictated By: CLAUDIA DUNBAR/VERONICA Conf#: [id number] DID#: [id number]
== END | disposition home or self-care (01) ==
LOC: HKI 14:17
PROVIDERS: ATTEND Orthopaedic Surgery Adult Reconstructive Orthopaedic Surgery
DX: Z96.651 Presence of right artificial knee joint (principal); Z47.1 Aftercare following joint replacement surgery

== ENCOUNTER 2019-04-26 07:51 | Day surgery (SDC) | payer OTHER ==
[~2019-04-26] VITALS: Ht 154.9 cm; Wt 63.7 kg
[2019-04-26] VITALS (9 sets, daily range): BP systolic 115–157; BP diastolic 54–73; PULSE 54–66; RESP 16–24; Ht 154.9 cm; Wt 63.7 kg
[~2019-04-26 07:51] MED LIST changes: +BRIM15DR2 LEFT EYE; +CYCLOPENTOLATE 1% 2 ML OPH OPER SCH; -DESFLURANE 15 MIN ONE; +DICL2.5D11 LEFT EYE; +LACTATED RINGER'S 1,000 ML (ENTER RATE) IV SCH; +MOXIFLOXACIN 0.5% 3 ML OPH OPER SCH; +PHENYLephrine 2.5% 15 ML OPH OPER SCH; +TROPICAMIDE 1% 15 ML OPH OPER SCH
[2019-04-26] MEDS ORDERED: EPINEPHrine 1 MG INJ ONE (10:08)
[2019-04-26] MEDS ORDERED: LIDOCAINE 1% (MPF) 30 ML INJ ONE (10:08)
[2019-04-26] MEDS ORDERED: TOBRAMYCIN/DEXAMETH 3.5 GM OPH OINT ONE (10:08)
[2019-04-26] MEDS ORDERED: TETRACAINE 0.5% 4 ML OPH ONE (10:08)
[2019-04-26] MEDS ORDERED: TRYPAN BLUE 0.5 ML SYG IO ONE (10:08)
[2019-04-26] MEDS ORDERED: OXYCODONE/ACETAMINOPHEN (5/325) TAB PO PRN (10:30)
[2019-04-26] MEDS ORDERED: ONDANSETRON 4 MG INJ IV PRN (10:30)
[2019-04-26] MEDS ORDERED: HYDROmorphONE 1 MG/5 ML IV SYRINGE IV PRN ×2 (10:30)
[2019-04-26] MEDS ORDERED: MIDAZOLAM 1 MG/ML 2 ML INJ ONE (10:33)
[2019-04-26] MEDS ORDERED: FENTAnyl 50 MCG/ML VIAL ONE (10:34)
== END 2019-04-26 12:38 | disposition home or self-care (01) ==
LOC: SDS 07:51
PROVIDERS: ATTEND Ophthalmology
DX: H25.12 Age-related nuclear cataract, left eye (principal); E78.5 Hyperlipidemia, unspecified
CPT/HCPCS: 66984; J0171; J2250; J3010; V2632; Z7512; Z7610